=== PATIENT | female | born 1955 | race Caucasian/White ===

== ENCOUNTER 2017-04-02 18:42 | Inpatient (IN) | payer MEDICAID ==
[~2017-04-02] VITALS: Ht 162.6 cm; Wt 74.8 kg
[~2017-04-02 18:42] MED LIST: AMLO10TA80 PO; ASPI-1159 PO; Aspirin PO; CALC667T5 PO; CIPR-264 PO; CLOP75TA15 PO; DOCU-286 PO; FOLI-43 PO; GLIP5TAB12 PO; HYDR-4134 PO; HYDR-4135 PO; ISOS60TA4 PO; KETO5DRO80 RIGHTEYE; LEVVL SUBCUT; MEGE400O PO; NEPVIT PO; OMEP40CA34 PO; SEVE800T8 PO
[2017-04-02] MEDS ORDERED: MORPHINE SULFATE 4 MG/ML CPJ (NOT FOR IM USE) IV STA (19:02)
[2017-04-02] MEDS ORDERED: ONDANSETRON HCL 4MG/2ML VIAL IV STA (19:02)
[2017-04-02 19:21] LABS: BASOPHILS % 0.8 % (0.0-2.0); EOSINOPHILS % 2.3 % (0.0-5.0); HEMATOCRIT. 27.9 % (36.0-48.0); HEMOGLOBIN. 9.2 g/dL (12.0-16.0); LYMPHOCYTES % 13.9 % (20.0-50.0); MEAN CORPUSCULAR HEMOGLOBIN 31.1 pg (28.0-32.0); MEAN CORPUSCULAR VOLUME 93.8 fL (81.0-99.0); MONOCYTES % 7.8 % (2.0-8.0); NEUTROPHILS % 75.2 % (40.0-76.0); PLATELET 314 x1000/uL (130-400); RED BLOOD CELL COUNT 2.97 mill/uL (4.2-5.4); RED CELL DISTRIBUTION WIDTH 13.6 % (11.6-14.6)
[2017-04-02 19:24] LABS: INR 1.1; PROTHROMBIN TIME 11.1 sec (9.4-11.6)
[2017-04-02 19:34] LABS: CARBON DIOXIDE 32 mEq/L (21-32); CHLORIDE 96 mEq/L (98-107); TROPONIN I 0.06 ng/mL (0.00-0.04)
[2017-04-02] MEDS ORDERED: KETOROLAC 15MG/ML VIAL IV ONE (21:30)
[2017-04-02] MEDS ORDERED: GABAPENTIN 300MG CAPSULE PO ONE (21:30)
[2017-04-02] MEDS ORDERED: ONDANSETRON HCL 4MG/2ML VIAL IV PRN (22:00)
[2017-04-02] MEDS ORDERED: IPRATROPIUM/ALBUTEROL 0.5-3(2.5)MG/3ML NEB INH PRN (22:00)
[2017-04-02] MEDS ORDERED: HYDROCODONE/ACETAMINOPHEN 5/325MG TABLET PO PRN (22:00)
[2017-04-02] MEDS ORDERED: CLONIDINE 0.1MG TABLET PO PRN (22:00)
[2017-04-02] MEDS ORDERED: LACTULOSE 20G/30ML UDC PO PRN (22:00)
[2017-04-02] MEDS ORDERED: DOCUSATE SODIUM 100MG CAPSULE PO PRN (22:00)
[2017-04-02] MEDS ORDERED: ACETAMINOPHEN 325MG TABLET PO PRN (22:00)
[2017-04-02] MEDS ORDERED: MAGNESIUM/ALUMINUM HYDROXIDE/SIMETHICONE 30ML UDC PO PRN (22:00)
[2017-04-03] VITALS (7 sets, daily range): BP systolic 96–133; BP diastolic 47–57
[2017-04-03 00:17] LABS: TROPONIN I 0.07 ng/mL (0.00-0.04)
[2017-04-03] MEDS ORDERED: DEXTROSE 50% WATER 50ML SYRINGE IV PRN (05:00)
[2017-04-03] MEDS: BLOOD SUGAR DIAGNOSTIC STRIP TEST SCH ×4 (05:57→21:00)
[2017-04-03] MEDS: INSULIN LISPRO 100 UNITS/ML SUBCUT SCH ×4 (06:01→21:52)
[2017-04-03 06:50] LABS: BASOPHILS % 0.9 % (0.0-2.0); HEMATOCRIT. 25.1 % (36.0-48.0); HEMOGLOBIN. 8.3 g/dL (12.0-16.0); LYMPHOCYTES % 18.2 % (20.0-50.0); MEAN CORPUSCULAR VOLUME 93.6 fL (81.0-99.0); MEAN PLATELET VOLUME 8.3 fl (7.4-10.4); NEUTROPHILS % 67.9 % (40.0-76.0); PLATELET 272 x1000/uL (130-400); RED BLOOD CELL COUNT 2.69 mill/uL (4.2-5.4); RED CELL DISTRIBUTION WIDTH 13.8 % (11.6-14.6)
[2017-04-03 07:06] LABS: TROPONIN I 0.07 ng/mL (0.00-0.04)
[2017-04-03] MEDS: ASPIRIN 81MG EC TABLET PO SCH (08:36)
[2017-04-03] MEDS ORDERED: DOCUSATE SODIUM 100MG CAPSULE PO PRN (12:15)
[2017-04-03] MEDS ORDERED: MEDICATION NOT ON FORMULARY EA (Calcium Acetate 667 MG) PO SCH (13:00)
[2017-04-03] MEDS: AMLODIPINE 10MG TABLET PO SCH (13:00)
[2017-04-03] MEDS: HYDRALAZINE HCL 50MG TABLET PO SCH ×2 (14:00→21:28)
[2017-04-03] MEDS: MEGESTROL ACETATE 400 MG/10 ML UDC PO SCH (14:35)
[2017-04-03] MEDS: FOLIC ACID/VITAMIN B COMP W-C TABLET PO SCH (14:36)
[2017-04-03] MEDS: SEVELAMER CARBONATE 800 MG TABLET PO SCH ×2 (14:37→16:57)
[2017-04-03] MEDS: FOLIC ACID 1MG TABLET PO SCH (14:39)
[2017-04-03] MEDS: GLIPIZIDE 5MG TABLET PO SCH (14:39)
[2017-04-03] MEDS: OMEPRAZOLE 20MG CAPSULE EXTENDED RELEASE PO SCH (14:39)
[2017-04-03] MEDS: CLOPIDOGREL 75MG TABLET PO SCH (14:39)
[2017-04-03] MEDS: CALCIUM ACETATE 667MG CAPSULE PO SCH (16:57)
[2017-04-03] MEDS: KETOROLAC TROMETHAMINE 0.4% OPHTH 5ML RIGHTEYE SCH ×2 (16:57→22:35)
[2017-04-03] MEDS: INSULIN DETEMIR UD 100 UNITS/ML SYR SUBCUT SCH (21:53)
[2017-04-03] MEDS: ISOSORBIDE MONONITRATE 60MG TABLET SR 24HR PO SCH (22:00)
[2017-04-04] VITALS: BP 93/45
[2017-04-04 04:00] VITALS: BP 93/49
[2017-04-04] MEDS: HYDRALAZINE HCL 50MG TABLET PO SCH ×3 (05:24→23:14)
[2017-04-04] MEDS: INSULIN LISPRO 100 UNITS/ML SUBCUT SCH ×4 (06:04→21:39)
[2017-04-04] MEDS: OMEPRAZOLE 20MG CAPSULE EXTENDED RELEASE PO SCH (06:12)
[2017-04-04] MEDS: BLOOD SUGAR DIAGNOSTIC STRIP TEST SCH ×4 (06:12→21:00)
[2017-04-04] MEDS: GLIPIZIDE 5MG TABLET PO SCH (06:12)
[2017-04-04 07:16] LABS: BASOPHILS % 0.4 % (0.0-2.0); EOSINOPHILS % 1.4 % (0.0-5.0); HEMATOCRIT. 24.2 % (36.0-48.0); LYMPHOCYTES % 9.8 % (20.0-50.0); MEAN CORPUSCULAR VOLUME 93.9 fL (81.0-99.0); MEAN PLATELET VOLUME 8.4 fl (7.4-10.4); MONOCYTES % 5.6 % (2.0-8.0); NEUTROPHILS % 82.8 % (40.0-76.0); PLATELET 270 x1000/uL (130-400); RED BLOOD CELL COUNT 2.58 mill/uL (4.2-5.4); RED CELL DISTRIBUTION WIDTH 13.6 % (11.6-14.6)
[2017-04-04 08:00] VITALS: BP 100/51
[2017-04-04] MEDS ORDERED: ASPIRIN 81MG EC TABLET PO SCH (09:00)
[2017-04-04] MEDS ORDERED: MEDICATION NOT ON FORMULARY EA (Omeprazole 40 MG) PO SCH (09:00)
[2017-04-04] MEDS ORDERED: MEGESTROL ACETATE 400 MG PO SCH (09:00)
[2017-04-04] MEDS ORDERED: [UNRECOGNIZED DRUG - OTHER] PO SCH (09:00)
[2017-04-04] MEDS ORDERED: IOHEXOL-350 100 ML BOTTLE ONE (09:23)
[2017-04-04 12:00] VITALS: BP 123/49
[2017-04-04] MEDS: FOLIC ACID/VITAMIN B COMP W-C TABLET PO SCH (12:26)
[2017-04-04] MEDS: ISOSORBIDE MONONITRATE 60MG TABLET SR 24HR PO SCH ×2 (12:26→21:28)
[2017-04-04] MEDS: AMLODIPINE 10MG TABLET PO SCH (12:27)
[2017-04-04] MEDS: FOLIC ACID 1MG TABLET PO SCH (12:27)
[2017-04-04] MEDS: MEGESTROL ACETATE 400 MG/10 ML UDC PO SCH (12:27)
[2017-04-04] MEDS: ASPIRIN 81MG EC TABLET PO SCH (12:28)
[2017-04-04] MEDS: KETOROLAC TROMETHAMINE 0.4% OPHTH 5ML RIGHTEYE SCH ×4 (12:29→21:27)
[2017-04-04] MEDS: SEVELAMER CARBONATE 800 MG TABLET PO SCH ×3 (12:29→17:02)
[2017-04-04] MEDS: CALCIUM ACETATE 667MG CAPSULE PO SCH ×3 (12:40→17:02)
[2017-04-04] MEDS: CLOPIDOGREL 75MG TABLET PO SCH (12:46)
[2017-04-04] MEDS: INSULIN DETEMIR UD 100 UNITS/ML SYR SUBCUT SCH ×2 (12:49→21:34)
[2017-04-04 16:00] VITALS: BP 131/58
[2017-04-04 20:00] VITALS: BP 158/59
[2017-04-04] MEDS ORDERED: EPOETIN ALFA 10000UNITS/ML VIAL SUBCUT SCH (21:00)
[2017-04-05] VITALS: BP 107/48
[2017-04-05 04:00] VITALS: BP 115/48
[2017-04-05] MEDS: HYDRALAZINE HCL 50MG TABLET PO SCH ×2 (06:10→14:34)
[2017-04-05] MEDS: GLIPIZIDE 5MG TABLET PO SCH (06:10)
[2017-04-05] MEDS: BLOOD SUGAR DIAGNOSTIC STRIP TEST SCH ×3 (06:13→16:49)
[2017-04-05] MEDS: INSULIN LISPRO 100 UNITS/ML SUBCUT SCH ×2 (06:25→12:12)
[2017-04-05 06:38] LABS: BASOPHILS % 0.4 % (0.0-2.0); EOSINOPHILS % 1.4 % (0.0-5.0); HEMATOCRIT. 23.6 % (36.0-48.0); HEMOGLOBIN. 7.8 g/dL (12.0-16.0); LYMPHOCYTES % 10.4 % (20.0-50.0); MEAN CORPUSCULAR VOLUME 94.1 fL (81.0-99.0); MEAN PLATELET VOLUME 8.3 fl (7.4-10.4); MONOCYTES % 6.5 % (2.0-8.0); NEUTROPHILS % 81.3 % (40.0-76.0); PLATELET 260 x1000/uL (130-400); RED BLOOD CELL COUNT 2.51 mill/uL (4.2-5.4); RED CELL DISTRIBUTION WIDTH 13.8 % (11.6-14.6)
[2017-04-05] MEDS ORDERED: FAMOTIDINE 20MG TABLET PO SCH (07:10)
[2017-04-05] MEDS: CALCIUM ACETATE 667MG CAPSULE PO SCH ×2 (08:17→12:08)
[2017-04-05] MEDS: CLOPIDOGREL 75MG TABLET PO SCH (08:17)
[2017-04-05] MEDS: SEVELAMER CARBONATE 800 MG TABLET PO SCH ×2 (08:17→12:08)
[2017-04-05] MEDS: AMLODIPINE 10MG TABLET PO SCH (08:18)
[2017-04-05] MEDS: FOLIC ACID/VITAMIN B COMP W-C TABLET PO SCH (08:18)
[2017-04-05] MEDS: FOLIC ACID 1MG TABLET PO SCH (08:18)
[2017-04-05] MEDS: KETOROLAC TROMETHAMINE 0.4% OPHTH 5ML RIGHTEYE SCH ×2 (08:18→14:35)
[2017-04-05] MEDS: ASPIRIN 81MG EC TABLET PO SCH (08:18)
[2017-04-05] MEDS: ISOSORBIDE MONONITRATE 60MG TABLET SR 24HR PO SCH (08:18)
[2017-04-05] MEDS: MEGESTROL ACETATE 400 MG/10 ML UDC PO SCH (08:18)
[2017-04-05 08:33] VITALS: BP 110/43
[2017-04-05] MEDS: INSULIN DETEMIR UD 100 UNITS/ML SYR SUBCUT SCH (11:07)
[2017-04-05 12:00] VITALS: BP 117/49
[2017-04-05] MEDS ORDERED: HYDR-523 PO (14:23)
[2017-04-05 15:29] VITALS: BP 117/49
[2017-04-05 16:04] VITALS: BP 125/56
== END 2017-04-05 17:09 | disposition home health service (06) | DRG 351 ==
LOC: ER 18:42 → 8WST 21:31 → EDBEDREQ 21:33 → ENRESERV 22:00 → 8WST 04-03 01:32
PROVIDERS: ADMIT Internal Medicine; ATTEND Internal Medicine
PROC: 5A1D70Z Performance of Urinary Filtration, Intermittent, Less than 6 Hours Per Day (ICD-10-PCS; principal; 2017-04-04)
DX: M25.569 Pain in unspecified knee (principal); N18.6 End stage renal disease; E11.22 Type 2 diabetes mellitus with diabetic chronic kidney disease; E11.51 Type 2 diabetes mellitus with diabetic peripheral angiopathy without gangrene; Z99.2 Dependence on renal dialysis; E11.319 Type 2 diabetes mellitus with unspecified diabetic retinopathy without macular edema; N83.202 Unspecified ovarian cyst, left side; N83.201 Unspecified ovarian cyst, right side; H54.62 Unqualified visual loss, left eye, normal vision right eye; E78.00 Pure hypercholesterolemia, unspecified; E78.5 Hyperlipidemia, unspecified; H40.9 Unspecified glaucoma; I13.11 Hypertensive heart and chronic kidney disease without heart failure, with stage 5 chronic kidney disease, or end stage renal disease; G89.29 Other chronic pain; D63.1 Anemia in chronic kidney disease; R53.1 Weakness; K21.9 Gastro-esophageal reflux disease without esophagitis; R29.6 Repeated falls; W18.30XA Fall on same level, unspecified, initial encounter; Y93.89 Activity, other specified; Y92.89 Other specified places as the place of occurrence of the external cause; Y99.8 Other external cause status; Z79.02 Long term (current) use of antithrombotics/antiplatelets; Z79.4 Long term (current) use of insulin; Z79.82 Long term (current) use of aspirin; Z79.899 Other long term (current) drug therapy; Z82.49 Family history of ischemic heart disease and other diseases of the circulatory system; Z89.422 Acquired absence of other left toe(s); Z95.0 Presence of cardiac pacemaker
CPT/HCPCS: 36415; 70450; 71010; 73560; 74176; 75635; 76830; 76856; 80048; 80053; 80061; 82270; 82378; 82550; 82962; 83690; 83735; 83880; 84443; 84484; 85025; 85610; 86301; 93005; 93306; 93923; 93970; 96374; 96375; 97162; 97166; 97530; 97535; 99285; J0885; J1815; J1885; J2270; J2405; J7030; Q9967

== ENCOUNTER 2017-05-03 21:44 | Emergency (ER) | payer MEDICAID ==
[~2017-05-03] VITALS: Ht 167.6 cm; Wt 68.0 kg
[~2017-05-03 21:44] MED LIST changes: -CIPR-264 PO; -LEVVL SUBCUT
[2017-05-03] MEDS ORDERED: ONDANSETRON HCL 4MG/2ML VIAL IV STA (22:15)
[2017-05-03] MEDS ORDERED: CEFAZOLIN 1000MG PREMIX 50 ML IV ONE (22:15)
[2017-05-03] MEDS ORDERED: TETANUS, DIPHTHERIA, PERTUSSIS VAC/PF 0.5ML (>7YR OLD) IM ONE (22:15)
[2017-05-03] MEDS ORDERED: MORPHINE SULFATE 4 MG/ML CPJ (NOT FOR IM USE) IV STA (22:15)
[2017-05-03 22:40] LABS: BASOPHILS % 0.3 % (0.0-2.0); CHLORIDE 89 mEq/L (98-107); EOSINOPHILS % 0.5 % (0.0-5.0); HEMOGLOBIN. 9.7 g/dL (12.0-16.0); LYMPHOCYTES % 9.4 % (20.0-50.0); MEAN CORPUSCULAR HEMOGLOBIN 31.3 pg (28.0-32.0); MEAN CORPUSCULAR VOLUME 96.6 fL (81.0-99.0); MEAN PLATELET VOLUME 9.1 fl (7.4-10.4); MONOCYTES % 8.1 % (2.0-8.0); NEUTROPHILS % 81.7 % (40.0-76.0); PLATELET 147 x1000/uL (130-400); RED BLOOD CELL COUNT 3.11 mill/uL (4.2-5.4); RED CELL DISTRIBUTION WIDTH 14.4 % (11.6-14.6)
[2017-05-03 22:42] LABS: INR 1.1; PROTHROMBIN TIME 11.1 sec (9.4-11.6)
[2017-05-03 22:49] LABS: CARBON DIOXIDE 29 mEq/L (21-32)
[2017-05-03] MEDS ORDERED: SODIUM POLYSTYRENE SULFONATE 15 G/60 ML BOT PO ONE (23:15)
[2017-05-03] MEDS ORDERED: ALBUTEROL (0.083%) 2.5MG/3ML NEB HHN ONE (23:15)
[2017-05-03] MEDS ORDERED: INSULIN REGULAR (HUMULIN R) 300UNITS/3ML IV ONE (23:15)
[2017-05-03] MEDS ORDERED: SODIUM BICARBONATE 8.4% 1 MEQ/ML 50ML SYR IV ONE (23:15)
[2017-05-04] MEDS ORDERED: MORPHINE SULFATE 2 MG/ML CPJ (NOT FOR IM USE) IV STA (00:20)
[2017-05-04] MEDS ORDERED: MORPHINE SULFATE 10 MG/ML CPJ IV SCH (00:30)
[2017-05-04] MEDS ORDERED: NITROGLYCERIN OINT 1GM/INCH UDPKT TD ONE (00:45)
[2017-05-04 00:58] VITALS: BP 120/54
== END 2017-05-04 01:23 | disposition short-term general hospital (02) ==
LOC: ER 21:55
DX: S82.202A Unspecified fracture of shaft of left tibia, initial encounter for closed fracture (principal); S82.402A Unspecified fracture of shaft of left fibula, initial encounter for closed fracture; I12.9 Hypertensive chronic kidney disease with stage 1 through stage 4 chronic kidney disease, or unspecified chronic kidney disease; E78.00 Pure hypercholesterolemia, unspecified; E11.65 Type 2 diabetes mellitus with hyperglycemia; E11.22 Type 2 diabetes mellitus with diabetic chronic kidney disease; E87.5 Hyperkalemia; D64.9 Anemia, unspecified; N18.9 Chronic kidney disease, unspecified; R07.9 Chest pain, unspecified; Z99.2 Dependence on renal dialysis; W01.0XXA Fall on same level from slipping, tripping and stumbling without subsequent striking against object, initial encounter; Y93.01 Activity, walking, marching and hiking; Y92.091 Bathroom in other non-institutional residence as the place of occurrence of the external cause; Y99.8 Other external cause status
CPT/HCPCS: 36415; 71010; 73590; 80053; 84484; 85025; 85610; 90471; 90715; 93005; 94644; 96365; 96375; 99291; J0690; J1815; J2270; J2405; J3490; J7611; Z7610; 94640